=== PATIENT | female | born 1980 ===

== ENCOUNTER 2017-04-03 20:28 | Emergency (ER) | payer MEDICAID ==
[2017-04-03] MEDS ORDERED: HYDROcodone/Acetaminophen 10/325 mg Tablet ONE (20:47)
[2017-04-03] MEDS ORDERED: AMOXicillin 250 MG CAP ONE (20:47)
[2017-04-03] MEDS ORDERED: Dexamethasone 4 mg/ml Vial ONE (20:47)
== END 2017-04-03 21:43 | disposition home or self-care (01) ==
LOC: BURERS 20:28
DX: K04.7 Periapical abscess without sinus (principal); F17.210 Nicotine dependence, cigarettes, uncomplicated
CPT/HCPCS: 99282; J1100

== ENCOUNTER 2017-04-12 19:10 | Emergency (ER) | payer MEDICAID ==
[2017-04-12] MEDS ORDERED: Adacel (T-DAP) 0.5 ML VIAL ONE (19:37)
[2017-04-12] MEDS ORDERED: Sulfameth/Trimethoprim DS 800-160mg TAB ONE (19:37)
== END 2017-04-12 19:50 | disposition home or self-care (01) ==
LOC: BURERS 19:10
DX: L02.01 Cutaneous abscess of face (principal); F17.210 Nicotine dependence, cigarettes, uncomplicated; Z23 Encounter for immunization; Z79.899 Other long term (current) drug therapy
CPT/HCPCS: 10060; 87070; 87077; 87186; 87205; 90471; 90715

== ENCOUNTER 2017-04-17 08:25 | Emergency (ER) | payer MEDICAID | END 2017-04-17 08:39 | disposition home or self-care (01) | LOC: BURERS 08:25 | DX: Z48.01 Encounter for change or removal of surgical wound dressing (principal); F17.210 Nicotine dependence, cigarettes, uncomplicated; Z79.2 Long term (current) use of antibiotics | CPT/HCPCS: 99282 ==

== ENCOUNTER 2017-05-07 07:19 | Emergency (ER) | payer MEDICAID ==
[2017-05-07] MEDS ORDERED: HYDROcodone/Acetaminophen 10/325 mg Tablet ONE (08:10)
[2017-05-07] MEDS ORDERED: Clindamycin 150 MG CAP ONE (08:11)
== END 2017-05-07 09:13 | disposition home or self-care (01) ==
LOC: BURERS 07:19
DX: L02.01 Cutaneous abscess of face (principal); F17.210 Nicotine dependence, cigarettes, uncomplicated
CPT/HCPCS: 10060

== ENCOUNTER 2017-05-10 21:31 | Emergency (ER) | payer MEDICAID | END 2017-05-10 22:09 | disposition home or self-care (01) | LOC: BURERS 21:31 | DX: Z48.01 Encounter for change or removal of surgical wound dressing (principal); F17.210 Nicotine dependence, cigarettes, uncomplicated; Z79.899 Other long term (current) drug therapy | CPT/HCPCS: 99282 ==